=== PATIENT | male | born 1995 | race Caucasian/White ===

== ENCOUNTER → 2018-02-24 | Outpatient (CLI) | payer BC ==
--- NOTE | 2018-02-24 15:39 | CARD ---
MR#: [id number] Date of Study: 02/24/2018 Ordering Physician: COLTON CRISOSTOMO, Referring Physician: COLTON CRISOSTOMO, Tech: Melody Mcrae [facility] APPROVED REPORT EXAM: Two-dimensional and M-mode echocardiogram with Doppler and color Doppler. Other Information Quality : GoodHR: 74bpm Rhythm : NSR INDICATION Family History of valve disease 2D DIMENSIONS RVDd2.7 (2.9-3.5cm)Left Atrium(2D)2.5 (1.6-4.0cm) IVSd1.0 (0.7-1.1cm)Aortic Root(2D)2.9 (2.0-3.7cm) LVDd4.3 (3.9-5.9cm)LVOT Diameter2.3 (1.8-2.4cm) PWd1.0 (0.7-1.1cm)IVSs1.4 (0.8-1.2cm) LVDs2.8 (2.5-4.0cm)FS (%) 35.3 % PWs1.4 (0.8-1.2cm)SV53.1 ml M-Mode DIMENSIONS Left Atrium(MM)2.80 (2.5-4.0cm)Aortic Root2.98 (2.2-3.7cm) Aortic Valve AoV Peak Derrell.125.5cm/sAoV VTI20.9cm AO Peak GR.6.3mmHgLVOT Peak Derrell.118.1cm/s LVOT VTI 21.10cmAO Mean GR.3mmHg MASSIEL (VMAX)2.85fr3QRM (VTI)4.07cm2 Mitral Valve MV E Eivkfpws82.6cm/sMV DECEL [id number] MV A Zojughwu32.4cm/sMV BID11yk E/A Ratio2.3MVA (PHT)3.16cm2 TDI E/Lateral E'4.0E/Medial E'4.7 Pulmonary Valve PV Peak Vhagnppu614.1cm/sPV Peak Grad.5mmHg Tricuspid Valve TR P. Ccyyeagt265ve/sRAP LPFUGADD9tiEm TR Peak Gr.95ulWzRPDG84hbRu Pulmonary Vein S1 Zlvikwto40.4cm/sD2 Hnflzajf80.4cm/s PVa gkivpvkb62ompo LEFT VENTRICLE The left ventricle is normal size. There is normal left ventricular wall thickness. The left ventricu lar systolic function is normal and the ejection fraction is within normal range. The Ejection Fracti on is 60-65%. There is normal LV segmental wall motion. The left ventricular diastolic function and f illing is normal for age. RIGHT VENTRICLE The right ventricle is normal size. There is normal right ventricular wall thickness. The right ventr icular systolic function is normal. ATRIA The left atrium size is normal. The right atrium size is normal. The interatrial septum is intact wit h no evidence for an atrial septal defect or patent foramen ovale as noted on 2-D or Doppler imaging. AORTIC VALVE The aortic valve is normal in structure and function. The aortic valve is trileaflet. Doppler and Col or Flow revealed no significant aortic regurgitation. There is no significant aortic valvular stenosi s. MITRAL VALVE The mitral valve is normal in structure and function. There is no evidence of mitral valve prolapse. There is no mitral valve stenosis. Doppler and Color Flow revealed no mitral valve regurgitation note d. TRICUSPID VALVE The tricuspid valve is normal in structure and function. Doppler and Color Flow revealed no tricuspid valve regurgitation noted. There is no tricuspid valve prolapse or vegetation. There is no tricuspid valve stenosis. PULMONIC VALVE The pulmonary valve is normal in structure and function. Doppler and Color Flow revealed trace pulmon ic valvular regurgitation. There is no pulmonic valvular stenosis. GREAT VESSELS The aortic root is normal in size. The ascending aorta is normal in size. PERICARDIAL EFFUSION There is no evidence of significant pericardial effusion. Critical Notification Critical Value: No <Conclusion> The left ventricle is normal size. The left ventricular systolic function is normal and the ejection fraction is within normal range. The Ejection Fraction is 60-65%. There is normal left ventricular wall thickness. There is no significant aortic valvular stenosis. Doppler and Color Flow revealed no significant aortic regurgitation. Doppler and Color Flow revealed no mitral valve regurgitation noted. Doppler and Color Flow revealed no tricuspid valve regurgitation noted. Signed by : Dipesh Barrera MD Electronically Approved : 02/24/2018 15:37:51
== END | disposition home or self-care (01) ==
LOC: ECHO 14:11
PROVIDERS: ATTEND Nurse Practitioner Family
DX: Z13.6 Encounter for screening for cardiovascular disorders (principal); Z82.49 Family history of ischemic heart disease and other diseases of the circulatory system
CPT/HCPCS: 93306

== ENCOUNTER 2018-09-19 19:01 | Emergency (ER) | payer BC, OTHER ==
[~2018-09-19] VITALS: Ht 167.6 cm; Wt 63.5 kg
[2018-09-19 19:13] VITALS: BP 145/100
[2018-09-19] MEDS ORDERED: LIDOCAINE 1% PF 2 ML VIAL. INJ ONE (19:15)
--- NOTE | 2018-09-19 19:46 | PHYS DOC ---
Past Medical History Past Medical History: No Pertinent History (KRISS LEPE APRN) Past Surgical History: No Surgical History (KRISS LEPE APRN) Alcohol Use: None Drug Use: None (KRISS LEPE APRN) Adult General Chief Complaint Chief Complaint: LACERATION/AVULSION HPI HPI Patient is a 23 year old male presents for evaluation of work-related injury. Another employee was using a safety knife and accidentally lacerated patient's left elbow. He reports he is up-to-date on tetanus immunization. He denies other injuries. (KRISS LEPE APRN) Review of Systems Review of Systems Constitutional: Denies fever or chills [] Eyes: Denies change in visual acuity, redness, or eye pain [] HENT: Denies nasal congestion or sore throat [] Respiratory: Denies cough or shortness of breath [] Cardiovascular: No additional information not addressed in HPI [] GI: Denies abdominal pain, nausea, vomiting, bloody stools or diarrhea [] : Denies dysuria or hematuria [] Musculoskeletal: Denies back pain or joint pain [] Integument: Laceration left elbow[] Neurologic: Denies headache, focal weakness or sensory changes [] Endocrine: Denies polyuria or polydipsia [] All other systems were reviewed and found to be within normal limits, except as documented in this note. (KRISS LEPE APRN) Current Medications Current Medications Current Medications Medications (Trade) Dose Ordered Sig/Ramirez Start Time Stop Time Status Last Admin Dose Admin Lidocaine HCl (Xylocaine-Mpf 1% 2ml Vial) 2 ml 1X ONCE 09/19/18 19:15 09/19/18 19:21 DC 09/19/18 19:21 2 ML (ZI RETANA MD) Allergies Allergies Allergies Coded Allergies Type Severity Reaction Last Updated Verified No Known Drug Allergies 09/19/18 No (ZI RETANA MD) Physical Exam Physical Exam Constitutional: Well developed, well nourished, no acute distress, non-toxic ap pearance. [] Skin: 1 cm laceration to left elbow[] Extremities: No tenderness, no cyanosis, no clubbing, ROM intact, no edema. [] Neurologic: Alert and oriented X 3, normal motor function, normal sensory function, no focal deficits noted. [] Psychologic: Affect normal, judgement normal, mood normal. [] (KRISS LEPE APRN) Current Patient Data Vital Signs Vital Signs Date Time Temp Pulse Resp B/P (MAP) Pulse Ox O2 Delivery O2 Flow Rate FiO2 09/19/18 19:13 98.2 70 16 145/100 (115) 96 Room Air 98.2 (ZI RETANA MD) EKG EKG [] (KRISS LEPE APRN) Radiology/Procedures Radiology/Procedures [Laceration Repair by me: Anesthesia: 1% lidocaine locally 2 mL Location: Left elbow Tendon/Joint/Nerves: No injury Foreign body: None detected after copious irrigation and exploration Technique: #2 Simple Interrupted Sutures Complexity: No subcutaneous sutures/mucosal repair/edge excision Post Closure Length: 1 cm Patient's bleeding was easily controlled in the department and there is no indication of anemia. No evidence of compartment syndrome, neurologic injury, vascular injury, open joint, tendon laceration, or foreign body. Patient is appropriate for outpatient follow up. 48 hour wound check. Scar minimization instructions given.] (KRISS LEPE APRN) Course & Med Decision Making Course & Med Decision Making Pertinent Labs and Imaging studies reviewed. (See chart for details) []Removal in 7-10 days, follow-up with workman's comp, may return to ER for suture removal if needed. (KRISS LEPE APRN) Course & Med Decision Making Staff Physician Addendum: I was working in the ER during the course of this patient's visit. I was available for consultation as needed, but I was not directly involved in the care of this patient. (ZI RETANA MD) Dragon Disclaimer Dragon Disclaimer This electronic medical record was generated, in whole or in part, using a voice recognition dictation system. (KRISS LEPE APRN) Departure Departure Impression: Primary Impression: Laceration Disposition: 01 HOME, SELF-CARE Condition: STABLE Referrals: COLTON CRISOSTOMO (PCP) Patient Instructions: Laceration Care, Adult Additional Instructions: Suture removal in 7-10 days KRISS LEPE APRN Sep 19, 2018 19:46 ZI RETANA MD Sep 20, 2018 04:21
== END 2018-09-19 20:12 | disposition home or self-care (01) ==
LOC: ER 19:01
DX: S51.012A Laceration without foreign body of left elbow, initial encounter (principal); W26.0XXA Contact with knife, initial encounter; Y93.89 Activity, other specified; Y92.69 Other specified industrial and construction area as the place of occurrence of the external cause; Y99.0 Civilian activity done for income or pay
CPT/HCPCS: 12001; 99283-25